=== PATIENT | male | born 1990 | race Two or more races ===

== ENCOUNTER 2024-05-13 08:36 | Emergency (ER) | payer OTHER ==
[2024-05-13 09:09] VITALS: BP 154/94; PULSE 84; RESP 18; TEMP 98; BMI 31.3
[2024-05-13] MEDS: SODIUM CHLORIDE 1,000 ML IV STA (09:28)
[2024-05-13] MEDS: ONDANSETRON 4 MG/2 ML VIAL IVPUSH ONE (09:29)
[2024-05-13] MEDS: ACETAMINOPHEN 1000 MG/100 ML BAG IVPB ONE (09:29)
[2024-05-13 09:33] LABS: BASO % 1.1 % (0-2.0); EOS % 5.8 % (0-4.5); HEMATOCRIT 45.2 % (35.4-49); HEMOGLOBIN 15.5 GM/dL (11.7-16.9); LYMPH % 47.1 % (8-40); MCH 32.8 pg (25.7-33.7); MCHC 34.4 g/dl (32.0-35.9); MEAN CELL VOLUME 95.3 fl (80-96); MEAN PLT VOLUME 7.4 fl (7.5-11.1); MONO % 6.6 % (3.8-10.2); NEUT % 39.4 % (42.8-82.8); PLATELET COUNT 283 10^3/uL (134-434); RBC 4.74 M/mm3 (4.00-5.60); RDW 12.4 % (11.9-15.9); WHITE BLOOD COUNT 8.4 K/mm3 (4.0-10.0)
[2024-05-13 09:37] LABS: EPI CELLS 4 /uL (0-25.1); HYALINE CASTS 0 /uL (0-3.1); PH,URINE 5.5 (5.0-8.0); URINE APPEARANCE CLEAR; URINE BACTERIA 12 /uL (0-1359); URINE BILIRUBIN NEGATIVE (NEGATIVE); URINE COLOR YELLOW; URINE GLUCOSE (UA) NEGATIVE (NEGATIVE); URINE KETONE TRACE (NEGATIVE); URINE LEUK ESTERASE NEGATIVE (NEGATIVE); URINE NITRITE NEGATIVE (NEGATIVE); URINE PROTEIN TRACE (NEGATIVE); URINE RBC 26 /uL (0-23.9); URINE UROBILINOGEN 0.2 mg/dL (0.2-1.0); URINE WBC 7 /uL (0-25.8)
[2024-05-13 09:43] LABS: INR 0.78 (0.83-1.09)
[2024-05-13 09:46] LABS: ACTIVATED PTT 28.3 SECONDS (25.2-36.5)
[2024-05-13] MEDS: KETOROLAC TROMETHAMINE 30 MG/1 ML VIAL IVPUSH ONE (09:51)
[2024-05-13 09:52] LABS: POTASSIUM 4.3 mmol/L (3.5-5.1)
[2024-05-13] MEDS ORDERED: KETOROLAC TROMETHAMINE 30 MG/1 ML VIAL ONE (09:52)
[2024-05-13 09:55] LABS: CALCIUM 8.9 mg/dL (8.5-10.1)
[2024-05-13 09:56] LABS: BLOOD UREA NITROGEN 12.2 mg/dL (7-18)
[2024-05-13 09:59] LABS: BILIRUBIN,TOTAL 0.3 mg/dL (0.2-1)
[2024-05-13 10:00] LABS: TOT PROT 7.5 g/dl (6.4-8.2)
[2024-05-13] MEDS ORDERED: TAMSULOSIN HCL 0.4 MG CAP ONE (12:52)
[2024-05-13] MEDS: TAMSULOSIN HCL 0.4 MG CAP PO ONE (12:55)
== END 2024-05-13 12:56 | disposition home or self-care (01) ==
LOC: JER 08:36
PROC: 3E033NZ Introduction of Analgesics, Hypnotics, Sedatives into Peripheral Vein, Percutaneous Approach (ICD-10-PCS; principal; 2024-05-13)
PROC: 3E0333Z Introduction of Anti-inflammatory into Peripheral Vein, Percutaneous Approach (ICD-10-PCS; 2024-05-13)
PROC: 3E033GC Introduction of Other Therapeutic Substance into Peripheral Vein, Percutaneous Approach (ICD-10-PCS; 2024-05-13)
PROC: 3E0337Z Introduction of Electrolytic and Water Balance Substance into Peripheral Vein, Percutaneous Approach (ICD-10-PCS; 2024-05-13)
DX: N13.2 Hydronephrosis with renal and ureteral calculous obstruction (principal); R10.31 Right lower quadrant pain; R11.2 Nausea with vomiting, unspecified
CPT/HCPCS: 36415; 71045-TC-FY; 74177-TC; 80053; 81003; 85025; 85610; 85730; 86850; 86900; 86901; 87086; 99285-25; J0131; Q9967